=== PATIENT | male | born 1970 | race American Indian/Alaskan Native ===

== ENCOUNTER 2022-01-29 14:09 | Emergency (ER) | payer SELFPAY ==
[2022-01-29 14:23] VITALS: BP 130/88
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
== END 2022-01-29 17:41 | disposition home or self-care (01) ==
LOC: ED 14:09
DX: M79.18 Myalgia, other site (principal); F17.200 Nicotine dependence, unspecified, uncomplicated; V89.2XXA Person injured in unspecified motor-vehicle accident, traffic, initial encounter; Y93.89 Activity, other specified; Y92.89 Other specified places as the place of occurrence of the external cause; Y99.8 Other external cause status
CPT/HCPCS: 99282